=== PATIENT | female | born 1965 | race Asian ===

== ENCOUNTER 2018-08-24 07:46 | Day surgery (SDC) | payer OTHER ==
[2018-08-24] MEDS ORDERED: FENTAnyl 50 MCG/ML VIAL (10:23)
[2018-08-24] MEDS ORDERED: PROPOFOL 20 ML (10:23)
== END 2018-08-24 12:00 | disposition home or self-care (01) ==
LOC: GIL 07:46
DX: Z12.11 Encounter for screening for malignant neoplasm of colon (principal); K64.8 Other hemorrhoids
CPT/HCPCS: 43239